=== PATIENT | female | born 1940 | race Two or more races ===

== ENCOUNTER 2016-06-15 14:46 | Outpatient (CLI) | payer MEDICARE, MEDICAID ==
[~2016-06-15 14:46] MED LIST: AMLO10TA2 PO; CHOL50004 PO; DOCU-25 PO; ESCI10TA PO; HYDR-3326 GT; INSU100V10 SQ; VIT1TABL46 PO
== END 2016-06-15 23:59 | disposition home or self-care (01) ==
LOC: WOU 14:46
PROVIDERS: ATTEND Podiatrist Foot & Ankle Surgery
DX: Z48.817 Encounter for surgical aftercare following surgery on the skin and subcutaneous tissue (principal); I69.351 Hemiplegia and hemiparesis following cerebral infarction affecting right dominant side; E03.9 Hypothyroidism, unspecified; E11.42 Type 2 diabetes mellitus with diabetic polyneuropathy; Z89.421 Acquired absence of other right toe(s); Z89.422 Acquired absence of other left toe(s); Z89.022 Acquired absence of left finger(s); Z89.021 Acquired absence of right finger(s); L84 Corns and callosities
CPT/HCPCS: A6402; G0463

== ENCOUNTER 2016-07-17 11:01 | Outpatient (CLI) | payer MEDICARE, MEDICAID | END 2016-07-17 23:59 | disposition home or self-care (01) | LOC: WOU 11:01 | PROVIDERS: ATTEND Podiatrist Foot & Ankle Surgery | DX: Z09 Encounter for follow-up examination after completed treatment for conditions other than malignant neoplasm (principal); E11.622 Type 2 diabetes mellitus with other skin ulcer; L98.491 Non-pressure chronic ulcer of skin of other sites limited to breakdown of skin; Z89.022 Acquired absence of left finger(s); Z89.021 Acquired absence of right finger(s); E03.9 Hypothyroidism, unspecified; I69.351 Hemiplegia and hemiparesis following cerebral infarction affecting right dominant side; I10 Essential (primary) hypertension; F32.9 Major depressive disorder, single episode, unspecified; Z91.19 Patient's noncompliance with other medical treatment and regimen; Z89.422 Acquired absence of other left toe(s); Z89.421 Acquired absence of other right toe(s); Z79.4 Long term (current) use of insulin; L84 Corns and callosities; E11.42 Type 2 diabetes mellitus with diabetic polyneuropathy | CPT/HCPCS: 11042; G0463 ==

== ENCOUNTER 2016-07-20 13:10 | Outpatient (CLI) | payer MEDICARE, MEDICAID ==
[~2016-07-20] VITALS: Ht 157.5 cm; Wt 74.4 kg
[2016-07-20 13:27] VITALS: BP_SYST 146; BP_SYST 149; BP_DIAS 83; BP_DIAS 84
== END 2016-07-20 23:59 | disposition home or self-care (01) ==
LOC: CSC 13:10
PROVIDERS: ATTEND Internal Medicine
DX: F32.1 Major depressive disorder, single episode, moderate (principal); K59.09 Other constipation; F51.04 Psychophysiologic insomnia; I10 Essential (primary) hypertension; R94.8 Abnormal results of function studies of other organs and systems; Z79.899 Other long term (current) drug therapy; E11.22 Type 2 diabetes mellitus with diabetic chronic kidney disease; I12.9 Hypertensive chronic kidney disease with stage 1 through stage 4 chronic kidney disease, or unspecified chronic kidney disease; N18.9 Chronic kidney disease, unspecified; Z79.4 Long term (current) use of insulin; I25.2 Old myocardial infarction; Z86.73 Personal history of transient ischemic attack (TIA), and cerebral infarction without residual deficits; E11.40 Type 2 diabetes mellitus with diabetic neuropathy, unspecified; Z89.422 Acquired absence of other left toe(s); Z89.022 Acquired absence of left finger(s); Z89.021 Acquired absence of right finger(s)
CPT/HCPCS: G0463

== ENCOUNTER 2016-09-12 13:09 | Outpatient (CLI) | payer MEDICARE, MEDICAID ==
[~2016-09-12] VITALS: Ht 157.5 cm; Wt 73.9 kg
[~2016-09-12 13:09] MED LIST changes: -AMLO10TA2 PO; +ASPI-605 PO; +ATOR20TA PO; +DICL100G3 TP; -DOCU-25 PO; -ESCI10TA PO; +FERR-58 PO; +FOLI0.8T23 PO; -HYDR-3326 GT; +INSU100I4 SQ; +LEVO100T9 PO; +LISI10TA5 PO; +MAGN500C4 PO; +PREG50CA PO; +SITA1TAB6 PO
[2016-09-12 13:43] VITALS: BP_SYST 132; BP_SYST 149; BP_DIAS 71; BP_DIAS 75
== END 2016-09-12 23:59 | disposition home or self-care (01) ==
LOC: CSC 13:09
PROVIDERS: ATTEND Internal Medicine
DX: Z51.89 Encounter for other specified aftercare (principal); E11.65 Type 2 diabetes mellitus with hyperglycemia; Z79.4 Long term (current) use of insulin; K59.09 Other constipation; G47.00 Insomnia, unspecified; Z79.84 Long term (current) use of oral hypoglycemic drugs; Z79.899 Other long term (current) drug therapy; I25.2 Old myocardial infarction; E11.22 Type 2 diabetes mellitus with diabetic chronic kidney disease; I12.9 Hypertensive chronic kidney disease with stage 1 through stage 4 chronic kidney disease, or unspecified chronic kidney disease; Z86.73 Personal history of transient ischemic attack (TIA), and cerebral infarction without residual deficits; Z79.82 Long term (current) use of aspirin; Z89.429 Acquired absence of other toe(s), unspecified side; Z87.448 Personal history of other diseases of urinary system; N18.6 End stage renal disease; Z99.2 Dependence on renal dialysis; E11.40 Type 2 diabetes mellitus with diabetic neuropathy, unspecified; E78.5 Hyperlipidemia, unspecified; Z89.021 Acquired absence of right finger(s); R54 Age-related physical debility; F33.1 Major depressive disorder, recurrent, moderate
CPT/HCPCS: G0463

== ENCOUNTER 2016-09-14 09:42 | Outpatient (CLI) | payer MEDICARE, MEDICAID | END 2016-09-14 23:59 | disposition home or self-care (01) | LOC: WOU 09:42 | PROVIDERS: ATTEND Podiatrist Foot & Ankle Surgery | DX: E65 Localized adiposity (principal); M77.42 Metatarsalgia, left foot; M77.41 Metatarsalgia, right foot; I69.351 Hemiplegia and hemiparesis following cerebral infarction affecting right dominant side; E03.9 Hypothyroidism, unspecified; Z89.422 Acquired absence of other left toe(s); Z89.421 Acquired absence of other right toe(s); E11.42 Type 2 diabetes mellitus with diabetic polyneuropathy | CPT/HCPCS: G0463 ==

== ENCOUNTER 2017-10-18 10:00 | Outpatient (CLI) | payer MEDICARE, MEDICAID ==
[~2017-10-18 10:00] MED LIST changes: +DICL100G16 TP; -DICL100G3 TP; -FERR-58 PO; +FERR325T24 PO; +MAGN500C16 PO; -MAGN500C4 PO
== END 2017-10-18 23:59 | disposition home health service (06) ==
LOC: WOU 10:00
PROVIDERS: ATTEND Podiatrist Foot & Ankle Surgery
DX: E11.42 Type 2 diabetes mellitus with diabetic polyneuropathy (principal); Z89.422 Acquired absence of other left toe(s); Z89.421 Acquired absence of other right toe(s); I69.351 Hemiplegia and hemiparesis following cerebral infarction affecting right dominant side; E03.9 Hypothyroidism, unspecified; Z90.49 Acquired absence of other specified parts of digestive tract
CPT/HCPCS: G0463

== ENCOUNTER 2017-10-22 08:20 | Outpatient (CLI) | payer MEDICARE, MEDICAID | END 2017-10-22 23:59 | disposition home or self-care (01) | LOC: WOU 08:20 | PROVIDERS: ATTEND Podiatrist Foot & Ankle Surgery | DX: Z47.81 Encounter for orthopedic aftercare following surgical amputation (principal); E11.42 Type 2 diabetes mellitus with diabetic polyneuropathy; Z89.421 Acquired absence of other right toe(s); Z89.422 Acquired absence of other left toe(s); I69.351 Hemiplegia and hemiparesis following cerebral infarction affecting right dominant side; I10 Essential (primary) hypertension | CPT/HCPCS: G0463 ==

== ENCOUNTER 2018-02-04 08:47 | Outpatient (CLI) | payer MEDICARE, MEDICAID | END 2018-02-04 23:59 | disposition home or self-care (01) | LOC: WOU 08:47 | PROVIDERS: ATTEND Podiatrist Foot & Ankle Surgery | DX: E11.42 Type 2 diabetes mellitus with diabetic polyneuropathy (principal); Z89.422 Acquired absence of other left toe(s); Z89.421 Acquired absence of other right toe(s); I69.351 Hemiplegia and hemiparesis following cerebral infarction affecting right dominant side; I10 Essential (primary) hypertension; E03.9 Hypothyroidism, unspecified | CPT/HCPCS: G0463; Z7610 ==

== ENCOUNTER 2018-07-11 10:30 | Outpatient (CLI) | payer MEDICARE, MEDICAID | END 2018-07-11 23:59 | disposition home or self-care (01) | LOC: WOU 10:30 | PROVIDERS: ATTEND Podiatrist Foot & Ankle Surgery | DX: Z09 Encounter for follow-up examination after completed treatment for conditions other than malignant neoplasm (principal); Z89.422 Acquired absence of other left toe(s); Z89.421 Acquired absence of other right toe(s); E11.42 Type 2 diabetes mellitus with diabetic polyneuropathy; I69.351 Hemiplegia and hemiparesis following cerebral infarction affecting right dominant side; E03.9 Hypothyroidism, unspecified; Z79.4 Long term (current) use of insulin; Z79.899 Other long term (current) drug therapy | CPT/HCPCS: A6402; G0463 ==

== ENCOUNTER 2021-01-13 13:00 | Outpatient (CLI) | payer MEDICARE, MEDICAID ==
[~2021-01-13 13:00] MED LIST changes: +LISI10TA29 PO; -LISI10TA5 PO
== END 2021-01-13 23:59 | disposition home or self-care (01) ==
LOC: WOU 13:00
PROVIDERS: ATTEND Surgery
DX: Z09 Encounter for follow-up examination after completed treatment for conditions other than malignant neoplasm (principal); Z89.421 Acquired absence of other right toe(s); Z89.422 Acquired absence of other left toe(s); M79.671 Pain in right foot; M79.672 Pain in left foot; I10 Essential (primary) hypertension; Z89.022 Acquired absence of left finger(s); Z89.021 Acquired absence of right finger(s); Z79.84 Long term (current) use of oral hypoglycemic drugs; Z79.899 Other long term (current) drug therapy; Z79.82 Long term (current) use of aspirin; I69.354 Hemiplegia and hemiparesis following cerebral infarction affecting left non-dominant side; E03.9 Hypothyroidism, unspecified; E11.9 Type 2 diabetes mellitus without complications; Z89.412 Acquired absence of left great toe; Z89.411 Acquired absence of right great toe
CPT/HCPCS: G0463

== ENCOUNTER 2021-12-01 10:40 | Outpatient (CLI) | payer MEDICARE, OTHER | END 2021-12-01 23:59 | disposition home health service (06) | LOC: WOU 10:40 | PROVIDERS: ATTEND Podiatrist Foot & Ankle Surgery | DX: E11.42 Type 2 diabetes mellitus with diabetic polyneuropathy (principal); Z79.84 Long term (current) use of oral hypoglycemic drugs; L84 Corns and callosities; I69.351 Hemiplegia and hemiparesis following cerebral infarction affecting right dominant side; M79.672 Pain in left foot; I10 Essential (primary) hypertension; Z89.422 Acquired absence of other left toe(s); Z89.421 Acquired absence of other right toe(s) | CPT/HCPCS: G0463 ==

== ENCOUNTER 2022-01-19 11:35 | Outpatient (CLI) | payer MEDICARE, OTHER | END 2022-01-19 23:59 | disposition home or self-care (01) | LOC: WOU 11:35 | PROVIDERS: ATTEND Podiatrist Foot & Ankle Surgery | DX: E11.621 Type 2 diabetes mellitus with foot ulcer (principal); L97.522 Non-pressure chronic ulcer of other part of left foot with fat layer exposed; E11.42 Type 2 diabetes mellitus with diabetic polyneuropathy; L84 Corns and callosities; Z89.422 Acquired absence of other left toe(s); Z89.421 Acquired absence of other right toe(s); M79.672 Pain in left foot; Z79.4 Long term (current) use of insulin; Z79.84 Long term (current) use of oral hypoglycemic drugs; I69.351 Hemiplegia and hemiparesis following cerebral infarction affecting right dominant side; I10 Essential (primary) hypertension | CPT/HCPCS: 11042 ==

== ENCOUNTER 2022-01-26 11:35 | Outpatient (CLI) | payer MEDICARE, OTHER | END 2022-01-26 23:59 | disposition home or self-care (01) | LOC: WOU 11:35 | PROVIDERS: ATTEND Podiatrist Foot & Ankle Surgery | DX: E11.621 Type 2 diabetes mellitus with foot ulcer (principal); L97.521 Non-pressure chronic ulcer of other part of left foot limited to breakdown of skin; L84 Corns and callosities; E11.42 Type 2 diabetes mellitus with diabetic polyneuropathy; M79.672 Pain in left foot; Z89.421 Acquired absence of other right toe(s); Z89.432 Acquired absence of left foot; Z79.4 Long term (current) use of insulin | CPT/HCPCS: G0463 ==

== ENCOUNTER 2022-02-02 11:15 | Outpatient (CLI) | payer MEDICARE, OTHER | END 2022-02-02 23:59 | disposition home or self-care (01) | LOC: WOU 11:15 | PROVIDERS: ATTEND Podiatrist Foot & Ankle Surgery | DX: E11.621 Type 2 diabetes mellitus with foot ulcer (principal); L97.522 Non-pressure chronic ulcer of other part of left foot with fat layer exposed; E11.42 Type 2 diabetes mellitus with diabetic polyneuropathy; L84 Corns and callosities; M79.672 Pain in left foot; Z89.432 Acquired absence of left foot; I69.351 Hemiplegia and hemiparesis following cerebral infarction affecting right dominant side; I10 Essential (primary) hypertension | CPT/HCPCS: 11042 ==

== ENCOUNTER 2022-02-09 10:55 | Outpatient (CLI) | payer MEDICARE, OTHER ==
[2022-02-09] MEDS ORDERED: LIDOCAINE SOLN 4% 50 ML BOTTLE ONE (11:22)
== END 2022-02-09 23:59 | disposition home health service (06) ==
LOC: WOU 10:55
PROVIDERS: ATTEND Podiatrist Foot & Ankle Surgery
DX: E11.42 Type 2 diabetes mellitus with diabetic polyneuropathy (principal); L84 Corns and callosities; M79.672 Pain in left foot; Z89.422 Acquired absence of other left toe(s); Z89.421 Acquired absence of other right toe(s); Z79.84 Long term (current) use of oral hypoglycemic drugs
CPT/HCPCS: G0463

== ENCOUNTER 2022-02-23 12:25 | Outpatient (CLI) | payer MEDICARE, OTHER ==
[2022-02-23] MEDS ORDERED: UREA 10% -AHA 4% CREAM 57 GM TUBE ONE (12:30)
== END 2022-02-23 23:59 | disposition home health service (06) ==
LOC: WOU 12:25
PROVIDERS: ATTEND Podiatrist Foot & Ankle Surgery
DX: Z09 Encounter for follow-up examination after completed treatment for conditions other than malignant neoplasm (principal); E11.42 Type 2 diabetes mellitus with diabetic polyneuropathy; L84 Corns and callosities; M79.672 Pain in left foot; Z86.31 Personal history of diabetic foot ulcer; Z89.422 Acquired absence of other left toe(s); Z89.421 Acquired absence of other right toe(s); Z79.4 Long term (current) use of insulin; Z79.84 Long term (current) use of oral hypoglycemic drugs
CPT/HCPCS: G0463

== ENCOUNTER 2022-03-23 13:26 | Outpatient (CLI) | payer MEDICARE, OTHER ==
[2022-03-23] MEDS ORDERED: UREA 10% -AHA 4% CREAM 57 GM TUBE ONE (13:58)
== END 2022-03-23 23:59 | disposition home health service (06) ==
LOC: WOU 13:26
PROVIDERS: ATTEND Podiatrist Foot & Ankle Surgery
DX: L84 Corns and callosities (principal); E11.9 Type 2 diabetes mellitus without complications; Z79.4 Long term (current) use of insulin; Z79.84 Long term (current) use of oral hypoglycemic drugs; I69.351 Hemiplegia and hemiparesis following cerebral infarction affecting right dominant side; I10 Essential (primary) hypertension
CPT/HCPCS: G0463

== ENCOUNTER 2022-08-29 11:58 | Outpatient (CLI) | payer MEDICARE, OTHER | END 2022-08-29 23:59 | disposition home or self-care (01) | LOC: MSC 11:58 | PROVIDERS: ATTEND Anesthesiology | DX: E11.40 Type 2 diabetes mellitus with diabetic neuropathy, unspecified (principal); E11.622 Type 2 diabetes mellitus with other skin ulcer; Z79.4 Long term (current) use of insulin; Z89.422 Acquired absence of other left toe(s); G89.4 Chronic pain syndrome; M54.50 Low back pain, unspecified; M62.830 Muscle spasm of back; Z79.891 Long term (current) use of opiate analgesic ==